=== PATIENT | female | born 1970 | race American Indian/Alaskan Native ===

== ENCOUNTER 2016-12-16 16:52 | Emergency (ER) | payer MEDICAID ==
[2016-12-16 19:28] VITALS: BP 170/98
--- NOTE | 2016-12-16 21:23 | XRay Report ---
FINAL REPORT EXAM: XR KNEE 3V RT HISTORY: Knee pain TECHNIQUE: Right knee three views 3 images PRIORS: None. FINDINGS: Bone mineralization appears within normal limits. No acute fracture or subluxation is seen. There is suggestion of right knee effusion. There is evidence of chondrocalcinosis of the lateral meniscus. IMPRESSION: 1. No acute osseous abnormality is identified. 2. Right knee effusion is suspected.
[2016-12-16] MEDS ORDERED: LOVENOX SUB-Q ONE (22:33)
--- NOTE | 2016-12-17 03:37 | Emergency Department Report ---
Entered by HERNAN OLEARY, acting as scribe for MIQUEL FUENTES NP. ED Lower Extremity HPI - General Chief Complaint: Extremity Injury, Lower Stated Complaint: RT KNEE SWELLING Time Seen by Provider: 12/16/16 20:01 Source: patient Mode of arrival: Ambulatory Limitations: No Limitations - History of Present Illness Initial Comments: 46 year old female with a PMHx of osteoarthritis, fibromyalgia, and obesity presents to the ED c/o right knee and right hip pain that began yesterday. Rates right knee 9/10 in severity. Associated symptoms includes tenderness to touch of the calf and anterior knee. Patient has a normal gait with tenderness in the knee and calf area. Denies any right leg injury, chest pain, SOB, numbness, tingling, fever, chills, nausea, vomiting, back pain, and abdominal pain. Denies any recent travel or long car rides. Denies being on control. Allergic to Ibuprofen. MD Complaint: other (right knee/calf) Onset/Timin -: Gradual, days(s) (1) Injury: Knee: Right Type of Injury: other (no injury) Place: home Severity: moderate Severity scale (0 -10): 9 Improves With: nothing Worsens With: nothing Context: other (none) Associated Symptoms: able to partially bear weight, ambulatory. denies: snap/ pop sensation, swelling, numbness, tingling, other (chest pain, SOB, abdominal pain, fever, and chills) - Related Data Previous Rx's Medication Instructions Recorded Last Taken Type Cyclobenzaprine HCl [Flexeril] 10 mg PO TID PRN #30 tablet 09/09/13 Unknown Rx HYDROcodone/APAP 5-325 [[place] 1 each PO Q6HR PRN #20 tablet 09/09/13 Unknown Rx 5/325 mg] Naproxen [Naprosyn] 375 mg PO BID #60 tablet 09/09/13 Unknown Rx Allergies Allergy/AdvReac Type Severity Reaction Status Date / Time ibuprofen AdvReac Unknown Verified 12/16/16 19:29 ED Review of Systems Comment: All other systems reviewed and negative Constitutional: denies: chills, fever, other (tingling) Eyes: denies: eye pain, eye discharge, vision change ENT: denies: ear pain, throat pain Respiratory: denies: cough, orthopnea, shortness of breath, SOB with exertion, SOB at rest, stridor Cardiovascular: denies: chest pain, dyspnea on exertion, orthopnea Endocrine: no symptoms reported Gastrointestinal: denies: abdominal pain, nausea, vomiting Genitourinary: denies: urgency, dysuria, discharge Musculoskeletal: other (right knee and right hip pain). denies: back pain, joint swelling Skin: denies: rash Neurological: denies: headache, numbness Psychiatric: denies: anxiety, depression Hematological/Lymphatic: denies: easy bleeding, easy bruising ED Past Medical Hx - Past Medical History Hx Arthritis: Yes Additional medical history: Fibromyalgia, Morbid Obesity - Surgical History Additional Surgical History: Gastric Sleeve - Social History Smoking Status: Never Smoker Substance Use Type: None - Medications Home Medications: Home Medications Medication Instructions Recorded Confirmed Last Taken Type Cyclobenzaprine HCl [Flexeril] 10 mg PO TID PRN #30 tablet 09/09/13 Unknown Rx HYDROcodone/APAP 5-325 [[place] 1 each PO Q6HR PRN #20 tablet 09/09/13 Unknown Rx 5/325 mg] Naproxen [Naprosyn] 375 mg PO BID #60 tablet 09/09/13 Unknown Rx ED Physical Exam - General Limitations: No Limitations General appearance: alert, in no apparent distress - Head Head exam: Present: atraumatic, normocephalic - Eye Eye exam: Present: normal appearance, EOMI Pupils: Present: normal accommodation - ENT ENT exam: Present: normal exam, normal orophraynx, mucous membranes moist, TM's normal bilaterally, normal external ear exam - Neck Neck exam: Present: normal inspection, full ROM. Absent: tenderness, meningismus, lymphadenopathy - Respiratory Respiratory exam: Present: normal lung sounds bilaterally. Absent: respiratory distress, wheezes, rales, rhonchi, stridor, chest wall tenderness, accessory muscle use, decreased breath sounds, prolonged expiratory - Cardiovascular Cardiovascular Exam: Present: regular rate, normal rhythm, normal heart sounds. Absent: systolic murmur, diastolic murmur, rubs, gallop - GI/Abdominal GI/Abdominal exam: Present: soft. Absent: distended, tenderness, guarding, rebound, rigid - Extremities Exam Extremities exam: Present: normal inspection, full ROM, tenderness (right calf and right knee), normal capillary refill, calf tenderness (right calf). Absent : pedal edema, joint swelling (right leg) - Expanded Lower Extremity Exam Right Hip exam: Present: normal inspection, full ROM, tenderness. Absent: swelling, abrasion, laceration, ecchymosis, deformity, dislocation, erythema Upper Leg exam: Present: normal inspection, full ROM. Absent: tenderness Knee exam: Present: normal inspection, full ROM, tenderness, effusion, full knee extension. Absent: swelling, abrasion, laceration, ecchymosis, deformity, dislocation, erythema, pain w/ pronation/supination Lower Leg exam: Present: normal inspection, full ROM, tenderness (right calf tenderness), Ivonne's sign. Absent: swelling, abrasion, laceration, ecchymosis, deformity, dislocation, erythema Ankle exam: Present: normal inspection, full ROM. Absent: tenderness, anterior draw sign Foot/Toe exam: Present: normal inspection, full ROM. Absent: tenderness, swelling, abrasion, laceration, ecchymosis Neuro vascular tendon exam: Present: no vascular compromise. Absent: pulse deficit, abnormal cap refill, motor deficit, sensory deficit, tendon deficit, pallor Gait: Positive: observed and limited by pain - Back Exam Back exam: Present: normal inspection, full ROM. Absent: tenderness, CVA tenderness (R), CVA tenderness (L) - Neurological Exam Neurological exam: Present: alert, oriented X3, CN II-XII intact, normal gait - Psychiatric Psychiatric exam: Present: normal affect, normal mood - Skin Skin exam: Present: warm, dry, intact. Absent: rash, erythema, other (edema) ED Course Vital Signs 12/16/16 19:20 Temperature 98.1 F Pulse Rate 87 Respiratory 18 Rate Blood Pressure 170/98 Blood Pressure 170/98 [Left] O2 Sat by Pulse 99 Oximetry - Reevaluation(s) Reevaluation #1: 12/16/16 22:39 Dr. Alfred has been consulted and agrees to treatment and discharge plan of care. ED Lower Extremity MDM - Medical Decision Making Ed course: This is a 46-year-old female that presents with right knee and calf pain. 1- right knee x-ray. Results; no acute osseous abnormality is identified. Right knee effusion is suspected. 2- vascular Doppler of the right lower extremity obtained. Results pending. As per compounding pharmacy technician, she was not able to visualize areas of the groin area. 3- I instructed the patient to follow-up tomorrow for a result of the vascular Doppler study. 4- patient received Lovenox 180 mg subcutaneous in the ED. Patient does not well with no signs of any distress noted. 5- I instructed the patient to follow up with orthopedic doctor in 3-5 days if symptoms perceives. 6- at the time of discharge the patient does not seem toxic or ill in appearance. No signs of distress noted. Patient agrees to discharge plan and stated she will follow-up tomorrow for results of the vascular Doppler study. 7- Wells criteria for DVT: 1 points Low risk group for DVT. Unlikely according to Wells DVT studies. ED Disposition Clinical Impression: Tenderness of right calf, Knee effusion, right Disposition: DISCHARGED TO HOME OR SELFCARE Is pt being admited?: No Does the pt Need Aspirin: No Condition: Stable Instructions: Knee Effusion (ED) Additional Instructions: Please follow up tomorrow with [facility] for the results of vascular Doppler study to rule out deep vein thrombosis If symptoms persist follow-up with orthopedic doctor in 3-5 days Referrals: PRIMARY CAREMD [Referring] - 3-5 Days GRADY DELGADO MD [Staff Physician] - 3-5 Days [facility] [Outside] - 3-5 Days [facility] [Outside] - 3-5 Days Forms: Work/School Release Form(ED) This documentation as recorded by the MAMTA nance JASMINE,accurately reflects the service I personally performed and the decisions made by me,MIQUEL FUENTES, MONIQUE.
--- NOTE | 2016-12-18 11:18 | Vascular Lab Report ---
Right Lower Extremity Venous Duplex Study: Reason for Exam: Pain of the right lower extremity. Comments on the Right: All veins visualized are freely compressible without evidence of internal echogenicity. Flow is spontaneous and phasic throughout. No evidence of acute or chronic thrombus is seen in any of the vessels visualized. Patient's body habitus limits evaluation of the infrapopliteal vessels. Comments on the Left: A limited duplex study was done of the proximal veins of the left lower extremity. All veins visualized are freely compressible without evidence of internal echogenicity. Flow is spontaneous and phasic throughout. No evidence of acute or chronic thrombus is seen in any of the vessels visualized. Patient's body habitus limited evaluation of the left common femoral vein. Impression: No evidence of acute or chronic deep venous thrombosis in the right lower extremity.
== END 2016-12-16 22:53 | disposition home or self-care (01) ==
LOC: ED 16:52
DX: M25.461 Effusion, right knee (principal); M19.90 Unspecified osteoarthritis, unspecified site; E66.01 Morbid (severe) obesity due to excess calories; Z88.6 Allergy status to analgesic agent
CPT/HCPCS: 73562; 93971; 96372; 99283; J1650

== ENCOUNTER 2017-06-13 19:10 | Emergency (ER) | payer MEDICAID ==
[2017-06-13 23:34] LABS: Bilirubin,Urine NEG (Negative); Blood,Urine NEG (Negative); Ketones,Urine NEG (Negative); Leukocyte Esterase,Urine NEG (Negative); Mucus,Urine FEW /HPF; Nitrite,Urine NEG (Negative); Protein,Urine <15 mg/dL mg/dL (Negative); RBC,Urine < 1.0 /HPF (0.0-6.0); Urobilinogen,Urine < 2.0 mg/dL (<2.0); WBC,Urine < 1.0 /HPF (0.0-6.0)
[2017-06-14] MEDS ORDERED: FLEXERIL PO ONE (00:28)
[2017-06-14] MEDS ORDERED: NORCO 7.5/325 PO ONE (00:28)
--- NOTE | 2017-06-14 01:54 | XRay Report ---
FINAL REPORT EXAM: XR ANKLE 3+V RT HISTORY: fall, ankle pain COMPARISON: None available. FINDINGS: Soft tissue swelling. Ankle mortise is preserved. Small to moderate plantar calcaneal spur. No acute fracture dislocation. IMPRESSION: No acute bony abnormality.
--- NOTE | 2017-06-14 01:55 | XRay Report ---
FINAL REPORT EXAM: XR WRIST 3+V LT HISTORY: fall, wrist pain COMPARISON: None available. FINDINGS: 3 images of the left wrist obtained. Normal alignment of the carpal bones. Radiocarpal joint space preserved. No significant ulnar variance. Rounded ossicle at the margin the ulnar-sided process measuring 3 millimeters. IMPRESSION: No acute bony abnormality.
--- NOTE | 2017-06-14 01:56 | XRay Report ---
FINAL REPORT EXAM: XR SPINE LUMBOSACRAL 2-3V HISTORY: fall, back pain COMPARISON: None available. FINDINGS: Three images of the lumbar spine obtained. Lumbar vertebral body heights are grossly preserved. Evaluation somewhat limited by patient body habitus. Moderate loss of disc height L5-S1 level. Mild loss of disc height throughout the remainder of the lumbar spine. Pedicles are grossly intact. Surgical clips in the upper abdomen. IMPRESSION: Lumbar vertebral body heights are grossly preserved. Mild to moderate degenerative changes.
--- NOTE | 2017-06-14 02:51 | Emergency Department Report ---
ED Fall HPI - General Chief Complaint: Fall Stated Complaint: FALL Source: patient Mode of arrival: Wheelchair Limitations: No Limitations - History of Present Illness Initial Comments: 46 year old female presents to ED with right ankle pain, left wrist pain and lower back pain after mechanical ground level fall today. patient states she was at home and got out of chair and her leg gave out and she fell. patient denies LOC, syncope, trauma to head/neck, chest pain, palpitations. patient is stable, neurologically intact and in no acute distress. patient is alert and oriented to person place time and self. MD Complaint: fall -: Sudden Fall From: other (ground level) When Fall Occurred: just prior to arrival Place Fall Occurred: home Loss of Consciousness: none Prolonged Down Time?: no Symptoms Prior to Fall: none Location: back Location - Extremities: Right: Ankle Severity: mild Quality: aching Context: tripped/slipped Associated Symptoms: denies: headache, neck pain, numbness, weakness, chest paint, shortness of breath, abdominal pain, lightheaded, vertigo, confusion - Related Data Previous Rx's Medication Instructions Recorded Last Taken Type Cyclobenzaprine HCl [Flexeril] 10 mg PO TID PRN #30 tablet 09/09/13 Unknown Rx HYDROcodone/APAP 5-325 [[place] 1 each PO Q6HR PRN #20 tablet 09/09/13 Unknown Rx 5/325 mg] Naproxen [Naprosyn] 375 mg PO BID #60 tablet 09/09/13 Unknown Rx methOCARBAMOL [Robaxin TAB] 500 mg PO TID #15 tab 06/14/17 Unknown Rx Allergies Allergy/AdvReac Type Severity Reaction Status Date / Time ibuprofen AdvReac Unknown Verified 12/16/16 19:29 ED Review of Systems ROS: Stated complaint: FALL Other details as noted in HPI Constitutional: denies: chills, fever Eyes: denies: eye pain, eye discharge, vision change ENT: denies: ear pain, throat pain Respiratory: denies: cough, shortness of breath, wheezing Cardiovascular: denies: chest pain, palpitations Endocrine: no symptoms reported Gastrointestinal: denies: abdominal pain, nausea, diarrhea Genitourinary: denies: urgency, dysuria, discharge Musculoskeletal: joint swelling, arthralgia. denies: back pain Skin: denies: rash, lesions Neurological: denies: headache, weakness, paresthesias Psychiatric: denies: anxiety, depression Hematological/Lymphatic: denies: easy bleeding, easy bruising ED Past Medical Hx - Past Medical History Previous Medical History?: Yes Hx Arthritis: Yes Additional medical history: Fibromyalgia, Morbid Obesity - Surgical History Additional Surgical History: Gastric Sleeve - Social History Smoking Status: Never Smoker - Medications Home Medications: Home Medications Medication Instructions Recorded Confirmed Last Taken Type Cyclobenzaprine HCl [Flexeril] 10 mg PO TID PRN #30 tablet 09/09/13 Unknown Rx HYDROcodone/APAP 5-325 [[place] 1 each PO Q6HR PRN #20 tablet 09/09/13 Unknown Rx 5/325 mg] Naproxen [Naprosyn] 375 mg PO BID #60 tablet 09/09/13 Unknown Rx methOCARBAMOL [Robaxin TAB] 500 mg PO TID #15 tab 06/14/17 Unknown Rx ED Physical Exam - General Limitations: Physical Limitation General appearance: alert, in no apparent distress - Head Head exam: Present: atraumatic, normocephalic - Eye Eye exam: Present: normal appearance, EOMI - ENT ENT exam: Present: normal exam, mucous membranes moist - Neck Neck exam: Present: normal inspection, full ROM. Absent: tenderness - Respiratory Respiratory exam: Present: normal lung sounds bilaterally. Absent: respiratory distress, wheezes - Cardiovascular Cardiovascular Exam: Present: regular rate, normal rhythm. Absent: systolic murmur, diastolic murmur, rubs, gallop - GI/Abdominal GI/Abdominal exam: Present: soft, normal bowel sounds. Absent: distended, tenderness, guarding - Extremities Exam Extremities exam: Present: normal inspection, normal capillary refill - Expanded Upper Extremity Exam Left Shoulder Exam: Present: normal inspection, full ROM Upper Arm exam: Present: normal inspection, full ROM Elbow exam: Present: normal inspection, full ROM Forearm Wrist exam: Present: tenderness (mild tenderness to wrist joint), swelling (mild swelling to wrist joint) Hand Wrist exam: Present: normal inspection Vascular: Present: normal capillary refill, radial pulse. Absent: vascular compromise - Expanded Lower Extremity Exam Right Hip exam: Present: normal inspection, full ROM Upper Leg exam: Present: normal inspection, full ROM Knee exam: Present: normal inspection, full ROM Lower Leg exam: Present: normal inspection, full ROM Ankle exam: Present: tenderness, swelling (mild swelling to lateral ankle) Foot/Toe exam: Present: normal inspection, full ROM Neuro vascular tendon exam: Absent: no vascular compromise, pulse deficit, abnormal cap refill Gait: Positive: observed and limited by pain - Back Exam Back exam: Present: normal inspection, full ROM. Absent: tenderness - Neurological Exam Neurological exam: Present: alert, oriented X3 - Psychiatric Psychiatric exam: Present: normal affect, normal mood - Skin Skin exam: Present: warm, dry, intact, normal color. Absent: rash ED Course Vital Signs 06/13/17 06/13/17 06/14/17 19:20 19:36 01:20 Temperature 98.4 F Pulse Rate 86 88 Respiratory 16 16 18 Rate Blood Pressure 181/88 181/88 Blood Pressure [Left] O2 Sat by Pulse 100 100 Oximetry 06/14/17 03:25 Temperature Pulse Rate 89 Respiratory 18 Rate Blood Pressure Blood Pressure 158/82 [Left] O2 Sat by Pulse 99 Oximetry ED Medical Decision Making - Lab Data Labs 06/13/17 22:52 Urine Color Yellow Urine Turbidity Clear Urine pH 6.0 Ur Specific [place] 1.012 Urine Protein <15 mg/dl Urine Glucose (UA) Neg Urine Ketones Neg Urine Blood Neg Urine Nitrite Neg Urine Bilirubin Neg Urine Urobilinogen < 2.0 Ur Leukocyte Esterase Neg Urine WBC (Auto) < 1.0 Urine RBC (Auto) < 1.0 U Epithel Cells (Auto) 1.0 Urine Mucus Few Urine HCG, Qual Negative - Radiology Data Radiology results: report reviewed XR right ankle no acute bony abnormality XR left wrist No acute bony abnormality XR lspine Lumbar vertebral body heights are grossly preserved. Mild to moderate degenerative changes. - Medical Decision Making 46 year old female presents to ED with left wrist pain, right ankle pain, lower back pain after ground level mechanical fall. patient has no acute findings on imaging for fracture/dislocation. patient is stable, neurologically intact and in no acute distress. patient is ambulatory. patient has decreased pain with medication during ED visit and patient's ankle has been wrapped with china bandage. Critical care attestation.: If time is entered above; I have spent that time in minutes in the direct care of this critically ill patient, excluding procedure time. ED Disposition Clinical Impression: Fall Qualifiers: Encounter type: initial encounter Qualified Code(s): W19.XXXA - Unspecified fall, initial encounter Disposition: DC-01 TO HOME OR SELFCARE Is pt being admited?: No Does the pt Need Aspirin: No Condition: Stable Instructions: Fall Prevention (ED) Prescriptions: methOCARBAMOL [Robaxin TAB] 500 mg PO TID #15 tab Referrals: PRIMARY CARE, [Primary Care Provider] - 3-5 Days
[2017-06-14 03:26] VITALS: BP 158/82
== END 2017-06-14 03:26 | disposition home or self-care (01) ==
LOC: ED 19:10
DX: M25.571 Pain in right ankle and joints of right foot (principal); M25.532 Pain in left wrist; M54.5 Low back pain; M19.90 Unspecified osteoarthritis, unspecified site; Z88.6 Allergy status to analgesic agent
CPT/HCPCS: 72100; 81001; 81025; 99284